=== PATIENT | female | born 1970 | race Caucasian/White ===

== ENCOUNTER 2017-02-28 08:17 | Emergency (ER) | payer OTHER ==
[~2017-02-28] VITALS: Ht 149.9 cm; Wt 97.3 kg
[2017-02-28 08:20] VITALS: BP 136/78; PULSE 69; TEMP 36.5; O2SAT 98; Ht 149.9 cm; Wt 97.3 kg
--- NOTE | 2017-02-28 08:53 | EMERGENCY ROOM VISIT NOTE ---
ED Visit Note First contact with patient: 08:28 CHIEF COMPLAINT: Left eye irritation HISTORY OF PRESENT ILLNESS: This 47-year-old female presents to the ER with chief complaint of left eye irritation for the past 2 days. The patient states it gets worse intermittently. She has been using [id number] Visine eyedrops without any relief. The patient denies any trauma to the eye or any foreign body. The only thing she can think of is that she was at the [place] 2 days ago and she might of gotten some sand in her eye. The patient denies any visual changes. She denies any eye pain. REVIEW OF SYSTEMS: Head: 6 system review was performed and was negative unless stated otherwise in history of present illness. PMH: The patient is healthy; cholecystectomy, kidney stones, SOCIAL HISTORY: Patient lives with friends. The patient denies any tobacco use but admits to occasional alcohol use. PHYSICAL EXAM: Vital Signs: Were reviewed Reviewed Nurse's notes. GENERAL: 47- year-old white female appears in no acute distress. MENTAL Status: Alert and oriented 3. EYES: The pupils are round, equal, and react to light. EOMs are full. There is discharge of clear tears from the injured eye which is injected. There is no foreign body visible under athe eyelid even after lid eversion. No foreign body was seen embedded in the cornea. The cornea was clear and no hyphema was seen. Fluorescein uptake was not observed with ultraviolet light. EMERGENCY DEPARTMENT COURSE: The patient was evaluated. Slit lamp exam was performed. The fluorescein was irrigated away . DIAGNOSIS: Allergic conjunctivitis left eye DISCHARGE INSTRUCTIONS AND TREATMENT: Recommend [id number] allergy eyedrops as directed on the label. Also recommend sezv-his-oaywwer Claritin or Zyrtec daily. If there are any signs of infection such as redness and purulent drainage follow up with your family doctor for antibiotic drops. Current/Historical Medications No Active Prescriptions or Reported Meds Allergies Coded Allergies: No Known Allergies (Unverified , 02/28/17) Vital Signs Date Time Temp Pulse Resp B/P (MAP) Pulse Ox O2 Delivery O2 Flow Rate FiO2 02/28/17 08:20 36.5 69 18 136/78 98 Room Air Departure Information Prescriptions No Active Prescriptions or Reported Meds Referrals No Doctor, Assigned (PCP) Patient Instructions [facility]
== END 2017-02-28 09:03 | disposition home or self-care (01) ==
LOC: C.EDB 08:19 → C.EDA 09:03
DX: H10.12 Acute atopic conjunctivitis, left eye (principal); Z87.442 Personal history of urinary calculi; Z90.49 Acquired absence of other specified parts of digestive tract